=== PATIENT | male | born 1940 | race Caucasian/White ===

== ENCOUNTER 2016-10-23 21:47 | Observation (INO) | payer MEDICARE, BC ==
--- NOTE | 2016-10-23 22:11 | ED ---
Chest Pain HPI - General Source: patient, family, RN notes reviewed Mode of arrival: wheelchair Limitations: no limitations - History of Present Illness MD Complaint: chest pain <Corey Marie - Last Filed: 10/24/16 01:24> <Hi Laird - Last Filed: 10/28/16 14:44> - General Chief Complaint: Chest Pain Stated Complaint: Chest Pain Time Seen by Provider: 10/23/16 21:58 - History of Present Illness Initial Comments: This is a 75-year-old male who presents with complaints of chest pain. States is located in his left chest anterior sharp in nature 67/10 severity does get worse with deep breathing or movements. He did take 2 nitroglycerin site without any relief. He states also had a recent stress test and echocardiogram which apparently were okay. He's had a slight cough for the past 2 weeks no fevers chills or sweats slight noncolored phlegm. (Corey Marie) - Related Data Home Medications Medication Instructions Recorded Confirmed Sertraline HCl [Zoloft] 100 mg PO QAM 06/15/13 10/23/16 Aspirin 81 mg PO QAM 05/03/14 10/23/16 Tamsulosin [Flomax] 0.4 mg PO HS 05/03/14 10/23/16 diphenhydrAMINE [Benadryl] 25 mg PO HS 05/03/14 10/23/16 Furosemide [Lasix] 80 mg PO QAM PRN 12/18/14 10/23/16 Baclofen 10 mg PO TID PRN 12/16/15 10/23/16 Budesonide/Formoterol Fumarate 1 puff INHALATION RT-DAILY 12/16/15 10/23/16 [Symbicort 160-4.5 Mcg Inhaler] HYDROcodone/APAP 7.5-325MG [[place] 1 tab PO Q6HR PRN 12/16/15 10/23/16 7.5-325] Nitroglycerin Sl Tabs [Nitrostat] 0.4 mg SUBLINGUAL Q5M PRN 12/16/15 10/23/16 traZODone HCL 100 mg PO HS PRN 12/16/15 10/23/16 Lisinopril [Zestril] 5 mg PO HS 10/23/16 10/23/16 Warfarin [Coumadin] 7.5 mg PO SUMOTUTHFRSA 10/23/16 10/23/16 Warfarin [Coumadin] 10 mg PO WE 10/23/16 10/23/16 Previous Rx's Medication Instructions Recorded Omeprazole [PriLOSEC] 20 mg PO AC-BRKFST #30 cap 12/23/14 Isosorbide Mononitrate ER [Imdur] 30 mg PO DAILY #30 tab 10/24/16 Allergies Allergy/AdvReac Type Severity Reaction Status Date / Time latex Allergy Rash/Hives Verified 10/24/16 03:53 Penicillins Allergy Anaphylaxis Verified 10/24/16 03:53 Review of Systems ROS Other: All systems not noted in ROS Statement are negative. <Corey Marie - Last Filed: 10/24/16 01:24> ROS Other: All systems not noted in ROS Statement are negative. <Hi Laird - Last Filed: 10/28/16 14:44> ROS Statement: Those systems with pertinent positive or pertinent negative responses have been documented in the HPI. EKG Findings - EKG Results: EKG: interpreted by ERMD (Sinus rhythm rate of 55. Interval 226 QRS 80 QT since QTC of 42/461 low-voltage there is evidence a right bundle-branch block. Compared with EKG dated 12/16/15 no morphology changes.) <Corey Marie - Last Filed: 10/24/16 01:24> Past Medical History Past Medical History: Coronary Artery Disease (CAD), Chest Pain / Angina, COPD, GERD/Reflux, Hyperlipidemia, Hypertension, Myocardial Infarction ([place]), Osteoarthritis (OA), Prostate Disorder Additional Past Medical History / Comment(s): Coronary artery disease, COPD, hypertension, hyperlipidemia, previous myocardial infarction, paroxysmal atrial fibrillation, sick sinus syndrome, pacemaker insertion, ischemic cardiomyopathy , previous history of GI bleed, nephrolithiasis, mild esophagitis, sigmoid diverticulosis, rectal polyp that was resected, previous stents for kidney stones, vitamin B12 deficiency, chronic back pain. Last Myocardial Infarction Date:: 2012 History of Any Multi-Drug Resistant Organisms: None Reported Past Surgical History: Back Surgery, Heart Catheterization With Stent, Hernia Repair, Orthopedic Surgery, Pacemaker Additional Past Surgical History / Comment(s): coronary stent x3, bilat knee replacement, hernia reapairs x2, RENAL STENTS Past Anesthesia/Blood Transfusion Reactions: No Reported Reaction Additional Past Anesthesia/Blood Transfusion Reaction / Comment(s): 04/2015 RECIEVED BLOOD BLOOD TRANSFUSION, 6 UNITS TOTAL Date of Last Stent Placement:: couple years ago Type of Cardiac Device: Permanent Pacemaker Device Placement Date:: 2014 Past Psychological History: No Psychological Hx Reported Smoking Status: Current some day smoker Past Alcohol Use History: Occasional Past Drug Use History: None Reported - Past Family History Father Family Medical History: Unable to Obtain Additional Family Medical History / Comment(s): Back problems Mother Family Medical History: Diabetes Mellitus, Hypertension <Corey Marie Filed: 10/24/16 01:24> General Exam Limitations: no limitations General appearance: alert, in no apparent distress Head exam: Present: atraumatic, normocephalic, normal inspection Eye exam: Present: normal appearance, PERRL, EOMI. Absent: scleral icterus, conjunctival injection, periorbital swelling ENT exam: Present: normal exam, mucous membranes moist Neck exam: Present: normal inspection. Absent: tenderness, meningismus, lymphadenopathy Respiratory exam: Present: normal lung sounds bilaterally, chest wall tenderness (Reproducible tenderness palpation of left costal sternal costochondral margin.). Absent: respiratory distress, wheezes, rales, rhonchi, stridor Cardiovascular Exam: Present: regular rate, normal rhythm, normal heart sounds. Absent: systolic murmur, diastolic murmur, rubs, gallop, clicks GI/Abdominal exam: Present: soft, normal bowel sounds. Absent: distended, tenderness, guarding, rebound, rigid Extremities exam: Present: normal inspection, full ROM, normal capillary refill. Absent: tenderness, pedal edema, joint swelling, calf tenderness Back exam: Present: normal inspection Neurological exam: Present: alert, oriented X3, CN II-XII intact Psychiatric exam: Present: normal affect, normal mood Skin exam: Present: warm, dry, intact, normal color. Absent: rash <Corey Marie Filed: 10/24/16 01:24> General appearance: alert, in no apparent distress Head exam: Present: atraumatic, normocephalic, normal inspection Eye exam: Present: normal appearance, PERRL, EOMI. Absent: scleral icterus, conjunctival injection, periorbital swelling ENT exam: Present: normal exam, mucous membranes moist Neck exam: Present: normal inspection. Absent: tenderness, meningismus, lymphadenopathy Respiratory exam: Present: normal lung sounds bilaterally. Absent: respiratory distress, wheezes, rales, rhonchi, stridor Cardiovascular Exam: Present: regular rate, normal rhythm, normal heart sounds. Absent: systolic murmur, diastolic murmur, rubs, gallop, clicks GI/Abdominal exam: Present: soft, normal bowel sounds. Absent: distended, tenderness, guarding, rebound, rigid Extremities exam: Present: normal inspection, full ROM, normal capillary refill. Absent: tenderness, pedal edema, joint swelling, calf tenderness Back exam: Present: normal inspection Neurological exam: Present: alert, oriented X3, CN II-XII intact Psychiatric exam: Present: normal affect, normal mood Skin exam: Present: warm, dry, intact, normal color. Absent: rash <Hi Laird - Last Filed: 10/28/16 14:44> - General Exam Comments Initial Comments: This is a well-developed well-nourished awake alert oriented 3 male (Corey Marie) Course <Corey Marie - Last Filed: 10/24/16 01:24> <Hi Laird - Last Filed: 10/28/16 14:44> Vital Signs 10/23/16 10/23/16 10/23/16 21:49 22:32 23:48 Temperature 97 F L Pulse Rate 56 L 52 L 63 Respiratory 16 16 16 Rate Blood Pressure 156/84 146/76 133/73 O2 Sat by Pulse 96 97 96 Oximetry 10/24/16 10/24/16 10/24/16 01:07 02:17 02:32 Temperature 97.1 F L 97.2 F L Pulse Rate 59 L 53 L 50 L Respiratory 18 20 Rate Blood Pressure 139/77 169/79 O2 Sat by Pulse 94 L 95 Oximetry 10/24/16 02:51 Temperature Pulse Rate 50 L Respiratory Rate Blood Pressure O2 Sat by Pulse Oximetry - Reevaluation(s) Reevaluation #1: 10/24/16 01:24 Computed tomography scan of the chest is pending patient's care will be endorsed to Dr. Laird who will make final disposition (Corey Marie) Chest Pain MDM <Corey Marie - Last Filed: 10/24/16 01:24> <Hi Laird - Last Filed: 10/28/16 14:44> - MDM 72 female here for evaluation without pain. Patient has satisfactory bowel movement here in the emergency, sick at this time he has no pain feels completely relieved. Patient will be placed on bowel regimen discharged home\ X-rays reviewed shows possible ileus (Hi Laird) Critical Care Time Critical Care Time: Yes Total Critical Care Time: 31 <Hi Laird - Last Filed: 10/28/16 14:44> Disposition <Corey Marie - Last Filed: 10/24/16 01:24> <Hi Laird - Last Filed: 10/28/16 14:44> Clinical Impression: Chest pain, COPD (chronic obstructive pulmonary disease) Disposition: ADMITTED IP TO THIS HOSP Condition: Good
[2016-10-23 22:45] LABS: Basophils % (A) 1 %; CH 29.4; CHCM 33.2; Eosinophils # (A) 0.4 k/uL (0-0.7); Eosinophils % (A) 5 %; HCT 36.9 % (39.0-53.0); HDW 2.87; HGB 12.6 gm/dL (13.0-17.5); Luc # (Auto) 0.17; Luc % (Auto) 2; Lymphocytes # (A) 1.6 k/uL (1.0-4.8); Lymphocytes % (A) 21 %; MCH 30.4 pg (25.0-35.0); MCHC 34.2 g/dL (31.0-37.0); MCV 88.8 fL (80.0-100.0); Mean Platelet Volume 7.7; Monocytes # (A) 0.7 k/uL (0-1.0); Monocytes % (A) 10 %; Neutrophils # (A) 4.7 k/uL (1.3-7.7); Neutrophils % (A) 62 %; RBC 4.15 m/uL (4.30-5.90); RDW 14.1 % (11.5-15.5); WBC 7.6 k/uL (3.8-10.6); WBC (Perox) 7.33
[2016-10-23 22:55] LABS: Partial Thromboplastin Time 22.7 sec (22.0-30.0); Prothrombin Time 9.8 sec (9.0-12.0)
[2016-10-23 23:01] LABS: ALT 27 U/L (21-72); AST 16 U/L (17-59); Alkaline Phosphatase 92 U/L (38-126); Anion Gap 7 mmol/L; Blood Urea Nitrogen 17 mg/dL (9-20); Calcium 9.2 mg/dL (8.4-10.2); Carbon Dioxide 23 mmol/L (22-30); Chloride 106 mmol/L (98-107); Glucose 100 mg/dL (74-99); Magnesium 1.9 mg/dL (1.6-2.3); Non-African American GFR(MDRD) >60 (>60 ml/min/1.73 sqM); Potassium 4.6 mmol/L (3.5-5.1); Sodium 136 mmol/L (137-145); Total Bilirubin 0.3 mg/dL (0.2-1.3); Total Protein 6.3 g/dL (6.3-8.2)
[2016-10-23 23:06] LABS: Creatine Kinase 70 U/L (55-170)
--- NOTE | 2016-10-23 23:12 | XR ---
EXAM: XR Chest, 2 Views CLINICAL HISTORY: Reason: Chest Pain TECHNIQUE: Frontal and lateral views of the chest. COMPARISON: Portable chest radiograph 12/18/2015 FINDINGS: Lungs: Increased opacity involving right mid and lower lung zone suggesting right lower lobe infiltrate left lung is clear. Pleural space: There is mild pleural thickening or minimal right pleural effusion. Mild pleural thickening along the left lateral hemithorax. No evidence of free left pleural effusion. No pneumothorax. Heart: Heart size is upper limits of normal. Mediastinum: Thoracic aorta is elongated. Mediastinal structures are otherwise within normal limits. Bones/joints: Moderate degenerative changes involve the thoracic spine. Tubes, lines and devices: Cardiac pacer has leads extending to region of right atrium and ventricle. IMPRESSION: Right lower lobe infiltrate raising possibility of pneumonia. Clinical correlation and short-term radiographic follow-up recommended. Mild right pleural thickening or minimal right pleural effusion. Mild left pleural thickening.
[2016-10-23 23:19] LABS: Creatine Kinase MB 1.1 ng/mL (0.0-2.4); Troponin I <0.012 ng/mL (0.000-0.034)
[2016-10-24] MEDS ORDERED: RX INFO: IV CONTRAST WAS GIVEN 1 EACH MISC MISCELLANE PRN (00:05)
--- NOTE | 2016-10-24 02:04 | CT ---
EXAM: CT Angiography Chest With Intravenous Contrast CLINICAL HISTORY: Reason: Pain TECHNIQUE: Axial computed tomographic angiography images of the chest with intravenous contrast using pulmonary embolism protocol. CTDI is 63.1 mGy and DLP is 446.9 mGy-cm. This CT exam was performed using one or more of the following dose reduction techniques: automated exposure control, adjustment of the mA and/or kV according to patient size, and/or use of iterative reconstruction technique. MIP reconstructed images were created and reviewed. COMPARISON: Chest radiograph 10/23/2016. CT chest noncontrast 04/27/2014 FINDINGS: Pulmonary arteries: No evidence of acute pulmonary embolism. Aorta: Moderate calcific atherosclerotic disease involving thoracic aorta. Ascending thoracic aortic aneurysm measuring 4.7 cm in maximum AP diameter. No definite evidence of thoracic aortic dissection although aortic evaluation somewhat limited due to suboptimal aortic arterial contrast opacification. Lungs: Chronic right apical pleural-parenchymal opacities suggesting apical scarring. Scattered opacities involving right middle lobe and left upper lobe most suggestive of subsegmental atelectasis or scarring. Subsegmental atelectasis along posterior aspect of right lower lobe. Pleural-parietal scarring or subsegmental atelectasis lateral aspect right lower lobe. Posterior left lower lobe pleural-parenchymal scarring or subsegmental atelectasis. Pleural space: Mild bilateral pleural thickening with scattered bilateral calcified pleural plaques. Minimal left pleural effusion. No pneumothorax. Heart: Heart size upper limits of normal. Prominent coronary arterial calcifications. Cardiac pacer device is present area No significant pericardial effusion. Bones/joints: Hypertrophic degenerative changes throughout the thoracic spine. Soft tissues: 1.5 x 2.5 cm ovoid low-density along the subcutaneous soft tissues right anterior mid chest wall is nonspecific but raises possibility of sebaceous cyst. Lymph nodes: No evidence of mediastinal or hilar lymphadenopathy. Adrenals: Stable low-density left adrenal enlargement, unchanged since 04/27/2014 likely representing adrenal adenoma. Probable small right upper pole parapelvic renal cyst. Upper abdomen: Images including upper abdomen demonstrate evidence of small hiatal hernia. IMPRESSION: 4.7 cm ascending thoracic aortic aneurysm. Coronary arterial calcific atherosclerotic disease. No evidence of acute pulmonary embolism. Multifocal areas of subsegmental atelectasis or pleural parenchymal scarring throughout both lungs. 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 Minimal left pleural effusion. Upper abdominal findings as described in body of report.
[2016-10-24] MEDS ORDERED: LEVOFLOXACIN 750MG-D5W PMX 750 MG in DEXTROSE/WATER 1 150ML.BAG IVPB STA (02:16)
[2016-10-24] MEDS ORDERED: PNEUMONIA PROTOCOL UTILIZED 1 EACH MISC PO PRN (02:16)
[2016-10-24] MEDS ORDERED: HEPARIN SODIUM,PORCINE 5,000 UNIT/ML 1 ML VIAL IV ONE (02:16)
[2016-10-24] MEDS ORDERED: IPRATROPIUM-ALBUTEROL 3 ML NEB INHALATION STA (02:16)
[2016-10-24] MEDS ORDERED: NITROGLYCERIN SL TABS 0.4 MG TAB SUBLINGUAL PRN ×2 (02:16→09:04)
[2016-10-24] MEDS ORDERED: ASPIRIN 81 MG PO STA (02:16)
[2016-10-24] MEDS ORDERED: MORPHINE SULFATE 4 MG/ML SYRINGE IV PRN (02:16)
[2016-10-24] MEDS ORDERED: SODIUM CHLORIDE 0.9% 1,000 ML IV SCH (02:30)
[2016-10-24 03:32] VITALS: BMI 29.2
[2016-10-24 05:12] LABS: Creatine Kinase 62 U/L (55-170)
[2016-10-24 05:25] LABS: Troponin I <0.012 ng/mL (0.000-0.034)
[2016-10-24] MEDS: IPRATROPIUM-ALBUTEROL 3 ML NEB INHALATION SCH ×3 (08:36→16:10)
[2016-10-24] MEDS ORDERED: FUROSEMIDE 80 MG TAB PO PRN (09:04)
[2016-10-24] MEDS ORDERED: HYDROcodone/APAP 7.5-325MG 1 EACH TAB PO PRN (09:04)
[2016-10-24] MEDS ORDERED: BACLOFEN 10 MG TAB PO PRN (09:04)
[2016-10-24] MEDS ORDERED: traZODone HCL 100 MG TAB PO PRN (09:04)
[2016-10-24] MEDS ORDERED: SERTRALINE 100 MG TAB PO SCH (09:15)
[2016-10-24] MEDS ORDERED: ASPIRIN 81 MG PO SCH (09:15)
[2016-10-24] MEDS ORDERED: PANTOPRAZOLE 40 MG TABLET PO SCH (09:15)
--- NOTE | 2016-10-24 09:40 | P.CRDCN ---
History of Present Illness History of present illness: Patient interviewed and examined. Chest discomfort gradient of the shoulder. Recent stress test in the office. Vitals stable underlying COPD. Chronic changes in the lungs noted on CT Blood pressure 157/78 mmHg heart rate in the 50s Suggest Obtain 2-D echo and Doppler study from the office. This was reviewed LV function is normal Patient has stress test last week in the office awaiting results of this Please see full dictation by nurse practitioner Past Medical History Past Medical History: Coronary Artery Disease (CAD), Chest Pain / Angina, COPD, GERD/Reflux, Hyperlipidemia, Hypertension, Myocardial Infarction ([place]), Osteoarthritis (OA), Prostate Disorder Additional Past Medical History / Comment(s): Coronary artery disease, COPD, hypertension, hyperlipidemia, previous myocardial infarction, paroxysmal atrial fibrillation, sick sinus syndrome, pacemaker insertion, ischemic cardiomyopathy , previous history of GI bleed, nephrolithiasis, mild esophagitis, sigmoid diverticulosis, rectal polyp that was resected, previous stents for kidney stones, vitamin B12 deficiency, chronic back pain. Last Myocardial Infarction Date:: 2012 History of Any Multi-Drug Resistant Organisms: None Reported Past Surgical History: Back Surgery, Heart Catheterization With Stent, Hernia Repair, Orthopedic Surgery, Pacemaker Additional Past Surgical History / Comment(s): coronary stent x3, bilat knee replacement, hernia reapairs x2, RENAL STENTS Past Anesthesia/Blood Transfusion Reactions: No Reported Reaction Additional Past Anesthesia/Blood Transfusion Reaction / Comment(s): 04/2015 RECIEVED BLOOD BLOOD TRANSFUSION, 6 UNITS TOTAL Date of Last Stent Placement:: couple years ago Type of Cardiac Device: Permanent Pacemaker Device Placement Date:: 2014 Past Psychological History: No Psychological Hx Reported Smoking Status: Current some day smoker Past Alcohol Use History: Occasional Past Drug Use History: None Reported - Past Family History Father Family Medical History: Unable to Obtain Additional Family Medical History / Comment(s): Back problems Mother Family Medical History: Diabetes Mellitus, Hypertension Medications and Allergies Home Medications Medication Instructions Recorded Confirmed Type Sertraline HCl [Zoloft] 100 mg PO [facility] 06/15/13 10/23/16 History Aspirin 81 mg PO [facility] 05/03/14 10/23/16 History Tamsulosin [Flomax] 0.4 mg PO 05/03/14 10/23/16 History diphenhydrAMINE [Benadryl] 25 mg PO 05/03/14 10/23/16 History Furosemide [Lasix] 80 mg PO QAM PRN 12/18/14 10/23/16 History Omeprazole [PriLOSEC] 20 mg PO AC-BRKFST #30 cap 12/23/14 10/23/16 Rx Baclofen 10 mg PO TID PRN 12/16/15 10/23/16 History Budesonide/Formoterol Fumarate 1 puff INHALATION RT-DAILY 12/16/15 10/23/16 History [Symbicort 160-4.5 Mcg Inhaler] HYDROcodone/APAP 7.5-325MG [[place] 1 tab PO Q6HR PRN 12/16/15 10/23/16 History 7.5-325] Nitroglycerin Sl Tabs [Nitrostat] 0.4 mg SUBLINGUAL Q5M PRN 12/16/15 10/23/16 History traZODone HCL 100 mg PO HS PRN 12/16/15 10/23/16 History Lisinopril [Zestril] 5 mg PO HS 10/23/16 10/23/16 History Warfarin [Coumadin] 7.5 mg PO SUMOTUTHFRSA 10/23/16 10/23/16 History Warfarin [Coumadin] 10 mg PO WE 10/23/16 10/23/16 History Allergies Allergy/AdvReac Type Severity Reaction Status Date / Time latex Allergy Rash/Hives Verified 10/24/16 03:53 Penicillins Allergy Anaphylaxis Verified 10/24/16 03:53 Physical Exam Vitals: Vital Signs Temp Pulse Pulse Resp BP BP Pulse Ox 10/24/16 08:53 52 L 10/24/16 08:36 52 L 10/24/16 07:31 97.8 F 76 18 157/78 95 10/24/16 04:00 52 L 18 10/24/16 03:23 97.8 F 50 L 18 145/77 95 10/24/16 02:51 50 L 10/24/16 02:32 50 L 10/24/16 02:17 97.2 F L 53 L 20 169/79 95 10/24/16 01:07 97.1 F L 59 L 18 139/77 94 L 10/23/16 23:48 63 16 133/73 96 10/23/16 22:32 52 L 16 146/76 97 10/23/16 21:49 97 F L 56 L 16 156/84 96 Intake and Output 10/23/16 10/24/16 10/24/16 22:59 06:59 14:59 Intake Total 250 Output Total 352 Balance -102 Intake: Intake, IV Titration 250 Amount Levofloxacin 750Mg-D5w 150 Pmx 750 mg In Dextrose/ Water 1 150ml.bag @ 100 mls/hr IVPB ONCE STA Rx#: [id number] Sodium Chloride 0.9% 1, 100 000 ml @ 100 mls/hr IV . Q10H [facility] Rx#:[id number] Output: Urine 352 Other: Voiding Method Urinal Weight 95.254 kg 96 kg Results 10/23/16 22:37 10/23/16 22:37 Cardiac Enzymes 10/23/16 10/23/16 10/24/16 Range/Units 22:37 22:37 04:28 AST 16 L (17-59) U/L CK-MB (CK-2) 1.1 1.0 (0.0-2.4) ng/mL Troponin I <0.012 <0.012 (0.000-0.034) ng/mL Coagulation 10/23/16 Range/Units 22:37 PT 9.8 (9.0-12.0) sec APTT 22.7 (22.0-30.0) sec CBC 10/23/16 Range/Units 22:37 WBC 7.6 (3.8-10.6) k/uL RBC 4.15 L (4.30-5.90) m/uL Hgb 12.6 L (13.0-17.5) gm/dL Hct 36.9 L (39.0-53.0) % Plt Count 238 (150-450) k/uL Comprehensive Metabolic Panel 10/23/16 Range/Units 22:37 Sodium 136 L (137-145) mmol/L Potassium 4.6 (3.5-5.1) mmol/L Chloride 106 (98-107) mmol/L Carbon Dioxide 23 (22-30) mmol/L BUN 17 (9-20) mg/dL Creatinine 0.90 (0.66-1.25) mg/dL Glucose 100 H (74-99) mg/dL Calcium 9.2 (8.4-10.2) mg/dL AST 16 L (17-59) U/L ALT 27 (21-72) U/L Alkaline Phosphatase 92 (38-126) U/L Total Protein 6.3 (6.3-8.2) g/dL Albumin 3.5 (3.5-5.0) g/dL Current Medications Generic Name Dose Route Start Last Admin Trade Name Freq PRN Reason Stop Dose Admin Hydrocodone Bitart/Acetaminophen 1 each 10/24/16 09:04 [place] 7.5-325 PO Q6HR PRN Moderate Pain Albuterol/Ipratropium 3 ml 10/24/16 08:00 10/24/16 08:36 Duoneb 0.5 Mg-3 Mg/3 Ml Soln INHALATION 3 ml RT-QID TAIWO Administration Aspirin 81 mg 10/24/16 09:15 Aspirin PO QAM TAIWO Baclofen 10 mg 10/24/16 09:04 Lio[place]al PO TID PRN Muscle Pain/Spasm Budesonide/Formoterol Fumarate 1 puff 10/25/16 08:00 Symbicort 160-4.5 Mcg Inhaler INHALATION RT-DAILY TAIWO Diphenhydramine HCl 25 mg 10/24/16 21:00 Benadryl PO HS TAIWO Furosemide 80 mg 10/24/16 09:04 Lasix PO QAM PRN Edema Levofloxacin 750 mg/ IV 150 mls @ 100 mls/hr 10/25/16 04:00 Solution IVPB 11/06/16 04:01 Q24H TAIWO Sodium Chloride 1,000 mls @ 100 mls/hr 10/24/16 02:30 10/24/16 02:43 Saline 0.9% IV 100 mls/hr .Q10H TAIWO Administration Lisinopril 5 mg 10/24/16 21:00 Zestril PO HS TAIWO Miscellaneous Information 1 each 10/24/16 00:05 10/24/16 01:09 Rx Info: Iv Contrast Was Given MISCELLANE 10/26/16 00:05 1 each DAILY PRN Administration Per Protocol Miscellaneous Information 1 each 10/24/16 02:16 Pneumonia Protocol Utilized PO ONCE PRN Per Protocol Morphine Sulfate 4 mg 10/24/16 02:16 Morphine Sulfate (Inj) IV Q5M PRN Chest Pain Nitroglycerin 0.4 mg 10/24/16 02:16 Nitrostat SUBLINGUAL Q5M PRN Chest Pain Pantoprazole Sodium 40 mg 10/24/16 09:15 Protonix PO AC-BRKFST TAIWO Sertraline HCl 100 mg 10/24/16 09:15 Zoloft PO QAM TAIWO Tamsulosin HCl 0.4 mg 10/24/16 21:00 Flomax PO HS TAIWO Trazodone HCl 100 mg 10/24/16 09:04 Desyrel PO HS PRN Insomnia Warfarin Sodium 7.5 mg 10/24/16 18:00 Coumadin PO SUMOTUTHFRSA [facility] Warfarin Sodium 10 mg 10/25/16 18:00 Coumadin PO WE [facility] Intake and Output 10/23/16 10/24/16 10/24/16 22:59 06:59 14:59 Intake Total 250 Output Total 352 Balance -102 Intake: Intake, IV Titration 250 Amount Levofloxacin 750Mg-D5w 150 Pmx 750 mg In Dextrose/ Water 1 150ml.bag @ 100 mls/hr IVPB ONCE STA Rx#: [id number] Sodium Chloride 0.9% 1, 100 000 ml @ 100 mls/hr IV . Q10H [facility] Rx#:[id number] Output: Urine 352 Other: Voiding Method Urinal Weight 95.254 kg 96 kg 10/23/16 22:37 10/23/16 22:37
--- NOTE | 2016-10-24 10:47 | P.CRDCN ---
History of Present Illness Consult date: 10/24/16 History of present illness: This is a 75-year-old male pt of Dr. Padilla. Past medical history significant for HTN, ischemic cardiomyopathy, CAD, COPD, sick sinus syndrome with pacemaker implantation and paroxysmal atrial fibrillation on long-term anticoagulation with Coumadin and hyperlipidemia . He presents to the hospital with complains of sharp chest pain to left side more under the axilla. He states the pain radiates slightly to the left arm and is associated with nausea, sob and acute diaphoresis. He took 2 nitro with no relief and presented to the ED. Pain partially subsided on its own through the night. Continues to c/o mild discomfort, worse with deep inspiration. Earlier this month he underwent full cardiac evaluation in the office. Those records have been reviewed. Troponin negative x3, D-dimer elevated, CTA negative for PE. Review of Systems Extensive review of systems performed, negative except mentioned in HPI. Past Medical History Past Medical History: Coronary Artery Disease (CAD), Chest Pain / Angina, COPD, GERD/Reflux, Hyperlipidemia, Hypertension, Myocardial Infarction ([place]), Osteoarthritis (OA), Prostate Disorder Additional Past Medical History / Comment(s): Coronary artery disease, COPD, hypertension, hyperlipidemia, previous myocardial infarction, paroxysmal atrial fibrillation, sick sinus syndrome, pacemaker insertion, ischemic cardiomyopathy , previous history of GI bleed, nephrolithiasis, mild esophagitis, sigmoid diverticulosis, rectal polyp that was resected, previous stents for kidney stones, vitamin B12 deficiency, chronic back pain. Last Myocardial Infarction Date:: 2012 History of Any Multi-Drug Resistant Organisms: None Reported Past Surgical History: Back Surgery, Heart Catheterization With Stent, Hernia Repair, Orthopedic Surgery, Pacemaker Additional Past Surgical History / Comment(s): coronary stent x3, bilat knee replacement, hernia reapairs x2, RENAL STENTS Past Anesthesia/Blood Transfusion Reactions: No Reported Reaction Additional Past Anesthesia/Blood Transfusion Reaction / Comment(s): 04/2015 RECIEVED BLOOD BLOOD TRANSFUSION, 6 UNITS TOTAL Date of Last Stent Placement:: couple years ago Type of Cardiac Device: Permanent Pacemaker Device Placement Date:: 2014 Past Psychological History: No Psychological Hx Reported Smoking Status: Current some day smoker Past Alcohol Use History: Occasional Past Drug Use History: None Reported - Past Family History Father Family Medical History: Unable to Obtain Additional Family Medical History / Comment(s): Back problems Mother Family Medical History: Diabetes Mellitus, Hypertension Medications and Allergies Home Medications Medication Instructions Recorded Confirmed Type Sertraline HCl [Zoloft] 100 mg PO QAM 06/15/13 10/23/16 History Aspirin 81 mg PO QAM 05/03/14 10/23/16 History Tamsulosin [Flomax] 0.4 mg PO HS 05/03/14 10/23/16 History diphenhydrAMINE [Benadryl] 25 mg PO HS 05/03/14 10/23/16 History Furosemide [Lasix] 80 mg PO QAM PRN 12/18/14 10/23/16 History Omeprazole [PriLOSEC] 20 mg PO AC-BRKFST #30 cap 12/23/14 10/23/16 Rx Baclofen 10 mg PO TID PRN 12/16/15 10/23/16 History Budesonide/Formoterol Fumarate 1 puff INHALATION RT-DAILY 12/16/15 10/23/16 History [Symbicort 160-4.5 Mcg Inhaler] HYDROcodone/APAP 7.5-325MG [[place] 1 tab PO Q6HR PRN 12/16/15 10/23/16 History 7.5-325] Nitroglycerin Sl Tabs [Nitrostat] 0.4 mg SUBLINGUAL Q5M PRN 12/16/15 10/23/16 History traZODone HCL 100 mg PO HS PRN 12/16/15 10/23/16 History Lisinopril [Zestril] 5 mg PO HS 10/23/16 10/23/16 History Warfarin [Coumadin] 7.5 mg PO SUMOTUTHFRSA 10/23/16 10/23/16 History Warfarin [Coumadin] 10 mg PO WE 10/23/16 10/23/16 History Allergies Allergy/AdvReac Type Severity Reaction Status Date / Time latex Allergy Rash/Hives Verified 10/24/16 03:53 Penicillins Allergy Anaphylaxis Verified 10/24/16 03:53 Physical Exam Vitals: Vital Signs Temp Pulse Pulse Resp BP BP Pulse Ox 10/24/16 07:31 97.8 F 76 18 157/78 95 10/24/16 04:00 52 L 18 10/24/16 03:23 97.8 F 50 L 18 145/77 95 10/24/16 02:51 50 L 10/24/16 02:32 50 L 10/24/16 02:17 97.2 F L 53 L 20 169/79 95 10/24/16 01:07 97.1 F L 59 L 18 139/77 94 L 10/23/16 23:48 63 16 133/73 96 10/23/16 22:32 52 L 16 146/76 97 10/23/16 21:49 97 F L 56 L 16 156/84 96 Intake and Output 10/23/16 10/24/16 10/24/16 22:59 06:59 14:59 Intake Total 250 Output Total 352 Balance -102 Intake: Intake, IV Titration 250 Amount Levofloxacin 750Mg-D5w 150 Pmx 750 mg In Dextrose/ Water 1 150ml.bag @ 100 mls/hr IVPB ONCE STA Rx#: [id number] Sodium Chloride 0.9% 1, 100 000 ml @ 100 mls/hr IV . Q10H [facility] Rx#:[id number] Output: Urine 352 Other: Voiding Method Urinal Weight 95.254 kg 96 kg GENERAL: Well-appearing, well-nourished and in no acute distress. NECK: Supple without JVD or thyromegaly. LUNGS: Breath sounds rhonchi left base. Respiration equal and unlabored. No wheezes or rales. HEART: Regular rate and rhythm without murmurs, rubs or gallops. S1 and S2 heard. EXTREMITIES: Normal range of motion, no edema. No clubbing or cyanosis. Peripheral pulses intact and strong. Results 10/23/16 22:37 10/23/16 22:37 Cardiac Enzymes 10/23/16 10/23/16 10/24/16 Range/Units 22:37 22:37 04:28 AST 16 L (17-59) U/L CK-MB (CK-2) 1.1 1.0 (0.0-2.4) ng/mL Troponin I <0.012 <0.012 (0.000-0.034) ng/mL Coagulation 10/23/16 Range/Units 22:37 PT 9.8 (9.0-12.0) sec APTT 22.7 (22.0-30.0) sec CBC 10/23/16 Range/Units 22:37 WBC 7.6 (3.8-10.6) k/uL RBC 4.15 L (4.30-5.90) m/uL Hgb 12.6 L (13.0-17.5) gm/dL Hct 36.9 L (39.0-53.0) % Plt Count 238 (150-450) k/uL Comprehensive Metabolic Panel 10/23/16 Range/Units 22:37 Sodium 136 L (137-145) mmol/L Potassium 4.6 (3.5-5.1) mmol/L Chloride 106 (98-107) mmol/L Carbon Dioxide 23 (22-30) mmol/L BUN 17 (9-20) mg/dL Creatinine 0.90 (0.66-1.25) mg/dL Glucose 100 H (74-99) mg/dL Calcium 9.2 (8.4-10.2) mg/dL AST 16 L (17-59) U/L ALT 27 (21-72) U/L Alkaline Phosphatase 92 (38-126) U/L Total Protein 6.3 (6.3-8.2) g/dL Albumin 3.5 (3.5-5.0) g/dL Current Medications Generic Name Dose Route Start Last Admin Trade Name Freq PRN Reason Stop Dose Admin Albuterol/Ipratropium 3 ml 10/24/16 08:00 Duoneb 0.5 Mg-3 Mg/3 Ml Soln INHALATION RT-QID TAIWO Aspirin 325 mg 10/25/16 09:00 Aspirin PO DAILY TAIWO Levofloxacin 750 mg/ IV 150 mls @ 100 mls/hr 10/25/16 04:00 Solution IVPB 11/06/16 04:01 Q24H TAIWO Sodium Chloride 1,000 mls @ 100 mls/hr 10/24/16 02:30 10/24/16 02:43 Saline 0.9% IV 100 mls/hr .Q10H TAIWO Administration Miscellaneous Information 1 each 10/24/16 00:05 10/24/16 01:09 Rx Info: Iv Contrast Was Given MISCELLANE 10/26/16 00:05 1 each DAILY PRN Administration Per Protocol Miscellaneous Information 1 each 10/24/16 02:16 Pneumonia Protocol Utilized PO ONCE PRN Per Protocol Morphine Sulfate 4 mg 10/24/16 02:16 Morphine Sulfate (Inj) IV Q5M PRN Chest Pain Nitroglycerin 0.4 mg 10/24/16 02:16 Nitrostat SUBLINGUAL Q5M PRN Chest Pain Intake and Output 10/23/16 10/24/16 10/24/16 22:59 06:59 14:59 Intake Total 250 Output Total 352 Balance -102 Intake: Intake, IV Titration 250 Amount Levofloxacin 750Mg-D5w 150 Pmx 750 mg In Dextrose/ Water 1 150ml.bag @ 100 mls/hr IVPB ONCE STA Rx#: [id number] Sodium Chloride 0.9% 1, 100 000 ml @ 100 mls/hr IV . Q10H TAI[facility] Rx#:[id number] Output: Urine 352 Other: Voiding Method Urinal Weight 95.254 kg 96 kg 10/23/16 22:37 10/23/16 22:37 EKG Interpretations (text) EKG indicates sinus bradycardia with ST abnormalities that are his baseline when compared to old EKG on file and with the office. Assessment and Plan Plan: ASSESSMENT 1. Chest pain, atypical 2. Chronic stable CAD 3. COPD 4. Paroxysmal atrial fibrillation on long-term anticoagulation 5. Cardiomyopathy 6. Essential hypertension PLAN Records from the office of recent cardiac evaluation have been reviewed and are stable. From cardiac perspective this is stable angina with no aucte coronary event. He should follow up with Dr. Padilla at already scheduled appointment next week. Thank you kindly for this consultation. Nurse Practitioner note has been reviewed, I agree with a documented findings and plan of care. Patient was seen and examined.
[2016-10-24 11:57] LABS: Creatine Kinase 55 U/L (55-170)
[2016-10-24 12:09] LABS: Creatine Kinase MB 0.9 ng/mL (0.0-2.4); Troponin I <0.012 ng/mL (0.000-0.034)
[2016-10-24 13:02] VITALS: PULSE 60
[2016-10-24 15:16] VITALS: BP 120/75; RESP 18; TEMP 97.9
--- NOTE | 2016-10-24 17:15 | P.HPIM ---
History of Present Illness H&P Date: 10/24/16 Chief Complaint: Chest pain History of presenting complaint: This is a 74-year-old patient I saw this morning who follows with Dr. Rdz. Chronic stable medical conditions include paroxysmal atrial fibrillation, hypertension, hyperlipidemia, COPD, coronary artery disease with stent in 2 years ago, GERD, osteoarthritis. Patient also got a permanent pacemaker for sick sinus syndrome. Patient was watching television when he developed left chest wall anterior sharp pain going down the left arm. Lasted for good 45 minutes. Nitro tablet was not much help. He felt a bit lightheaded, was perspiring, felt weak and some nausea. Admitted with diagnosis of unstable angina GEN.: Tired EYES: None HEENT: None NECK: None RESPIRATORY: As above] CARDIOVASCULAR: As above GASTROINTESTINAL: None GENITOURINARY: None MUSCULOSKELETAL: Pain in the joints LYMPHATICS: None HEMATOLOGICAL: None PSYCHIATRY: None NEUROLOGICAL: None Past medical history: Paroxysmal atrial fibrillation, hypertension, hyperlipidemia, COPD, coronary artery disease with stent 2 years ago, GERD, [place] arthritis, sick sinus syndrome leading to pacemaker, kidney stones, B12 deficiency. Past surgical history: Back surgery, cardiac catheter stent, hernia surgery, pacemaker, stent 3, bilateral knee depressed, coronary stent times 2, renal stents, permanent pacemaker Home medications: Reviewed in the electronic health records ALLERGIES: Latex and penicillin Social history: Patient down to smoking 4-5 cigars a day smoker long time. Alcohol occasionally. Family history: Reviewed, noncontributory presentation VITAL SIGNS: 97, 56, 16, 156 is 84, 96% room air GENERAL: Average built, sitting up, comfortable. EYES: Pupils equal. Conjunctiva normal. HEENT: External appearance of nose and ears normal, oral cavity grossly normal. NECK: JVD not raised; masses not palpable. HEART: First and second heart sounds are normal; no edema. LUNGS: Respiratory rate normal; clear to auscultation. ABDOMEN: Soft, nontender, liver spleen not palpable, no masses palpable. LYMPHATICS: No lymph nodes palpable in the axilla and neck. PSYCH: Alert and oriented x3; mood and affect normal. NEUROLOGICAL: Cranial nerves grossly intact; no facial asymmetry, power and sensation grossly intact. Investigations: White count 7.6 hemoglobin 12.6 potassium 4.6 Troponin I 3 negative EKG-nonspecific findings Assessment: -Possible unstable angina in a patient with known coronary artery disease with stent Coronary artery disease a prior history of stent 2 years ago Paroxysmal atrial fibrillation currently in sinus rhythm -Essential hypertension -Hyperlipidemia -COPD in a current smoker -Chronic nicotine dependence patient active cigarette smoker -GERD -Primary osteoarthritis multiple joints -Sick sinus syndrome leading to pacemaker, chronic Plan: Patient did [facility]. When I saw this patient earlier today that is also elevated. Patient was counseled. Advised against smoking. Home medications are to be continued.. Past Medical History Past Medical History: Coronary Artery Disease (CAD), Chest Pain / Angina, COPD, GERD/Reflux, Hyperlipidemia, Hypertension, Myocardial Infarction ([place]), Osteoarthritis (OA), Prostate Disorder Additional Past Medical History / Comment(s): Coronary artery disease, COPD, hypertension, hyperlipidemia, previous myocardial infarction, paroxysmal atrial fibrillation, sick sinus syndrome, pacemaker insertion, ischemic cardiomyopathy , previous history of GI bleed, nephrolithiasis, mild esophagitis, sigmoid diverticulosis, rectal polyp that was resected, previous stents for kidney stones, vitamin B12 deficiency, chronic back pain. Last Myocardial Infarction Date:: 2012 History of Any Multi-Drug Resistant Organisms: None Reported Past Surgical History: Back Surgery, Heart Catheterization With Stent, Hernia Repair, Orthopedic Surgery, Pacemaker Additional Past Surgical History / Comment(s): coronary stent x3, bilat knee replacement, hernia reapairs x2, RENAL STENTS Past Anesthesia/Blood Transfusion Reactions: No Reported Reaction Additional Past Anesthesia/Blood Transfusion Reaction / Comment(s): 04/2015 RECIEVED BLOOD BLOOD TRANSFUSION, 6 UNITS TOTAL Date of Last Stent Placement:: couple years ago Type of Cardiac Device: Permanent Pacemaker Device Placement Date:: 2014 Past Psychological History: No Psychological Hx Reported Smoking Status: Current some day smoker Past Alcohol Use History: Occasional Past Drug Use History: None Reported - Past Family History Father Family Medical History: Unable to Obtain Additional Family Medical History / Comment(s): Back problems Mother Family Medical History: Diabetes Mellitus, Hypertension Medications and Allergies Home Medications Medication Instructions Recorded Confirmed Type Sertraline HCl [Zoloft] 100 mg PO QAM 06/15/13 10/23/16 History Aspirin 81 mg PO QAM 05/03/14 10/23/16 History Tamsulosin [Flomax] 0.4 mg PO 05/03/14 10/23/16 History diphenhydrAMINE [Benadryl] 25 mg PO 05/03/14 10/23/16 History Furosemide [Lasix] 80 mg PO QAM PRN 12/18/14 10/23/16 History Omeprazole [PriLOSEC] 20 mg PO AC-BRKFST #30 cap 12/23/14 10/23/16 Rx Baclofen 10 mg PO TID PRN 12/16/15 10/23/16 History Budesonide/Formoterol Fumarate 1 puff INHALATION RT-DAILY 12/16/15 10/23/16 History [Symbicort 160-4.5 Mcg Inhaler] HYDROcodone/APAP 7.5-325MG [[place] 1 tab PO Q6HR PRN 12/16/15 10/23/16 History 7.5-325] Nitroglycerin Sl Tabs [Nitrostat] 0.4 mg SUBLINGUAL Q5M PRN 12/16/15 10/23/16 History traZODone HCL 100 mg PO HS PRN 12/16/15 10/23/16 History Lisinopril [Zestril] 5 mg PO HS 10/23/16 10/23/16 History Warfarin [Coumadin] 7.5 mg PO SUMOTUTHFRSA 10/23/16 10/23/16 History Warfarin [Coumadin] 10 mg PO WE 10/23/16 10/23/16 History Allergies Allergy/AdvReac Type Severity Reaction Status Date / Time latex Allergy Rash/Hives Verified 10/24/16 03:53 Penicillins Allergy Anaphylaxis Verified 10/24/16 03:53 Results CBC & Chem 7: 10/23/16 22:37 10/23/16 22:37
--- NOTE | 2016-10-24 17:22 | P.DS ---
Providers Date of admission: 10/24/16 02:16 Expected date of discharge: 10/24/16 Attending physician: Anthony Seth Consults: 10/24/16 02:16 Consult Physician Urgent Consulting Provider: Brooklyn Gonzales Consult Reason/Comments: cp Do you want consulting provider notified?: Yes Primary care physician: Nilda Rdz [facility] Hospital Course: Hospital course: This patient with known coronary artery disease with stents 2 years ago, presented with chest pain. Troponins were negative. Seen by Dr. Gutierrez from cardiology. He had a stress test a week ago at [facility]. The nurse informed me that patient could be discharged with results were inconclusive and patient due to see Dr. padilla in the office. At the time of discharge patient is symptom-free up and about. Patient advised against smoking. Imdur 30 mg is being added On examination: Lungs-slightly decreased breath sounds, psych AO 3 Discharge diagnoses: -Possible unstable angina in a patient with known coronary artery disease with stent Coronary artery disease a prior history of stent 2 years ago Paroxysmal atrial fibrillation currently in sinus rhythm -Essential hypertension -Hyperlipidemia -COPD in a current smoker -Chronic nicotine dependence patient active cigarette smoker -GERD -Primary osteoarthritis multiple joints -Sick sinus syndrome leading to pacemaker, chronic Patient Condition at Discharge: Good Plan - Discharge Summary New Discharge Prescriptions: New Isosorbide Mononitrate ER [Imdur] 30 mg PO DAILY #30 tab Continue Sertraline HCl [Zoloft] 100 mg PO QAM diphenhydrAMINE [Benadryl] 25 mg PO HS Tamsulosin [Flomax] 0.4 mg PO HS Aspirin 81 mg PO QAM Furosemide [Lasix] 80 mg PO QAM PRN PRN Reason: Edema Omeprazole [PriLOSEC] 20 mg PO AC-BRKFST #30 cap Nitroglycerin Sl Tabs [Nitrostat] 0.4 mg SUBLINGUAL Q5M PRN PRN Reason: Chest Pain traZODone HCL 100 mg PO HS PRN PRN Reason: Insomnia Budesonide/Formoterol Fumarate [Symbicort 160-4.5 Mcg Inhaler] 1 puff INHALATION RT-DAILY HYDROcodone/APAP 7.5-325MG [[place] 7.5-325] 1 tab PO Q6HR PRN PRN Reason: Pain Baclofen 10 mg PO TID PRN PRN Reason: Muscle Pain/Spasm Warfarin [Coumadin] 10 mg PO WE Warfarin [Coumadin] 7.5 mg PO SUMOTUTHFRSA Lisinopril [Zestril] 5 mg PO HS Discharge Medication List Sertraline HCl [Zoloft] 100 mg PO QAM 06/15/13 [History] Aspirin 81 mg PO QAM 05/03/14 [History] Tamsulosin [Flomax] 0.4 mg PO HS 05/03/14 [History] diphenhydrAMINE [Benadryl] 25 mg PO HS 05/03/14 [History] Furosemide [Lasix] 80 mg PO QAM PRN 12/18/14 [History] Omeprazole [PriLOSEC] 20 mg PO AC-BRKFST #30 cap 12/23/14 [Rx] Baclofen 10 mg PO TID PRN 12/16/15 [History] Budesonide/Formoterol Fumarate [Symbicort 160-4.5 Mcg Inhaler] 1 puff INHALATION RT-DAILY 12/16/15 [History] HYDROcodone/APAP 7.5-325MG [[place] 7.5-325] 1 tab PO Q6HR PRN 12/16/15 [History] Nitroglycerin Sl Tabs [Nitrostat] 0.4 mg SUBLINGUAL Q5M PRN 12/16/15 [History] traZODone HCL 100 mg PO HS PRN 12/16/15 [History] Lisinopril [Zestril] 5 mg PO HS 10/23/16 [History] Warfarin [Coumadin] 7.5 mg PO SUMOTUTHFRSA 10/23/16 [History] Warfarin [Coumadin] 10 mg PO WE 10/23/16 [History] Isosorbide Mononitrate ER [Imdur] 30 mg PO DAILY #30 tab 10/24/16 [Rx] Follow up Appointment(s)/Referral(s): Rolando Padilla MD [STAFF PHYSICIAN] - 1 Week nilda rdz [Other] - 3 Days Patient Instructions/Handouts: Chest Pain (ED)
[2016-10-24] MEDS ORDERED: ISOSORBIDE MONONITRATE ER 30 MG TAB.ER.24H PO SCH (17:30)
[2016-10-24] MEDS ORDERED: WARFARIN 7.5 MG TAB PO SCH (18:00)
[2016-10-24] MEDS ORDERED: LISINOPRIL 5 MG TAB PO SCH (21:00)
[2016-10-24] MEDS ORDERED: diphenhydrAMINE 25 MG CAP PO SCH (21:00)
[2016-10-24] MEDS ORDERED: TAMSULOSIN 0.4 MG CAP.ER.24H PO SCH (21:00)
[2016-10-25] MEDS ORDERED: LEVOFLOXACIN 750MG-D5W PMX 750 MG in DEXTROSE/WATER 1 150ML.BAG IVPB SCH (04:00)
[2016-10-25] MEDS ORDERED: SYMBICORT 160-4.5 MCG INHALER INHALATION SCH (08:00)
[2016-10-25] MEDS ORDERED: ASPIRIN 325 MG TAB PO SCH (09:00)
[2016-10-25] MEDS ORDERED: WARFARIN 10 MG TAB PO SCH (18:00)
== END 2016-10-24 19:35 | disposition home or self-care (01) ==
LOC: EC 21:47 → 3OBS 10-24 02:16
PROVIDERS: ADMIT Hospitalist; ATTEND Hospitalist
DX: R07.89 Other chest pain (principal); I25.10 Atherosclerotic heart disease of native coronary artery without angina pectoris; I48.0 Paroxysmal atrial fibrillation; I10 Essential (primary) hypertension; E78.5 Hyperlipidemia, unspecified; J44.9 Chronic obstructive pulmonary disease, unspecified; F17.210 Nicotine dependence, cigarettes, uncomplicated; K21.9 Gastro-esophageal reflux disease without esophagitis; M19.91 Primary osteoarthritis, unspecified site; R42 Dizziness and giddiness; R06.02 Shortness of breath; R11.0 Nausea; R61 Generalized hyperhidrosis; R79.89 Other specified abnormal findings of blood chemistry; I49.5 Sick sinus syndrome; I25.5 Ischemic cardiomyopathy; M54.9 Dorsalgia, unspecified; G89.29 Other chronic pain; N42.9 Disorder of prostate, unspecified; I25.2 Old myocardial infarction; Z88.0 Allergy status to penicillin; Z95.0 Presence of cardiac pacemaker; Z79.899 Other long term (current) drug therapy; Z79.51 Long term (current) use of inhaled steroids; Z79.82 Long term (current) use of aspirin; Z79.01 Long term (current) use of anticoagulants; Z91.040 Latex allergy status; Z96.653 Presence of artificial knee joint, bilateral; Z87.442 Personal history of urinary calculi; Z95.5 Presence of coronary angioplasty implant and graft; Z83.3 Family history of diabetes mellitus; Z82.49 Family history of ischemic heart disease and other diseases of the circulatory system
CPT/HCPCS: 96365; 96375; 99291; 36415; 94640 ×2; 93005; 85379; 83880; 80053; 82550 ×2; 82553 ×2; 83735; 84484 ×2; 85025; 85610; 85730; 87040; 87070; 87205; 71020; 71275; G0378; J1644; Q9967; J1956